=== PATIENT | male | born 1950 | race Two or more races ===

== ENCOUNTER 2020-05-20 19:31 | Emergency (ER) | payer OTHER ==
[~2020-05-20] VITALS: Ht 180.3 cm; Wt 64.4 kg
[2020-05-20] MEDS ORDERED: METFORMIN HCL500 M3 (19:45)
[2020-05-20] MEDS ORDERED: CARVEDILOL12.5 M1 (19:45)
[2020-05-20] MEDS ORDERED: LASIX20 MG (19:46)
[2020-05-20] MEDS ORDERED: ASPIR 8181 MG (19:46)
[2020-05-20] MEDS ORDERED: FINASTERIDE5 MG (19:46)
[2020-05-20] MEDS ORDERED: BACTRIM DS TAB1 EACH PO (23:26)
== END 2020-05-20 23:50 | disposition home or self-care (01) ==
LOC: ER 19:31
DX: L72.3 Sebaceous cyst (principal); E11.65 Type 2 diabetes mellitus with hyperglycemia; Z20.828 Contact with and (suspected) exposure to other viral communicable diseases

== ENCOUNTER 2022-06-26 20:14 | Emergency (ER) | payer OTHER ==
[~2022-06-26] VITALS: Ht 180.3 cm; Wt 67.1 kg
[~2022-06-26 20:14] MED LIST: ASPIR 8181 MG; BACTRIM DS TAB1 EACH PO; CARVEDILOL12.5 M1; FINASTERIDE5 MG; LASIX20 MG; METFORMIN HCL500 M3
[2022-06-26] MEDS ORDERED: METFORMIN HCL1000 M2 PO (23:59)
[2022-06-27] MEDS ORDERED: LASIX20 MG PO (00:03)
== END 2022-06-27 00:11 | disposition home or self-care (01) ==
LOC: ER 20:14
DX: E11.65 Type 2 diabetes mellitus with hyperglycemia (principal); Z79.4 Long term (current) use of insulin; I10 Essential (primary) hypertension; Z88.8 Allergy status to other drugs, medicaments and biological substances

== ENCOUNTER 2022-11-22 11:36 | Emergency (ER) | payer OTHER ==
[~2022-11-22] VITALS: Ht 180.3 cm; Wt 69.4 kg
[~2022-11-22 11:36] MED LIST changes: +LASIX20 MG PO; +METFORMIN HCL1000 M2 PO
== END 2022-11-22 17:37 | disposition home or self-care (01) ==
LOC: ER 11:36
DX: R60.0 Localized edema (principal); Z88.6 Allergy status to analgesic agent; I10 Essential (primary) hypertension; E11.9 Type 2 diabetes mellitus without complications; Z20.822 Contact with and (suspected) exposure to COVID-19; I51.7 Cardiomegaly

== ENCOUNTER 2023-04-12 19:48 | Emergency (ER) | payer OTHER ==
[~2023-04-12] VITALS: Ht 180.3 cm; Wt 65.8 kg
[2023-04-12] MEDS ORDERED: TORSEMIDE20 MG PO (20:47)
== END 2023-04-13 03:10 | disposition home or self-care (01) ==
LOC: ER 19:48
DX: R06.02 Shortness of breath (principal); R07.9 Chest pain, unspecified; E78.00 Pure hypercholesterolemia, unspecified; N28.9 Disorder of kidney and ureter, unspecified; I11.0 Hypertensive heart disease with heart failure; I50.9 Heart failure, unspecified; Z95.0 Presence of cardiac pacemaker; Z88.8 Allergy status to other drugs, medicaments and biological substances

== ENCOUNTER 2024-07-13 10:28 | Emergency (ER) | payer OTHER ==
[~2024-07-13] VITALS: Ht 180.3 cm; Wt 68.9 kg
[~2024-07-13 10:28] MED LIST changes: +TORSEMIDE20 MG PO
[2024-07-13] MEDS ORDERED: JARDIANCE10 MG (10:42)
[2024-07-13] MEDS ORDERED: PEPCID AC20 MG PO (10:59)
[2024-07-13] MEDS ORDERED: CEPHALEXIN750 MG PO (10:59)
[2024-07-13] MEDS ORDERED: CEFTRIAXONE SODIUM 1,000 MG VIAL IM ONE (11:00)
[2024-07-13] MEDS ORDERED: KETOROLAC TROMETHAMINE 30 MG VIAL IM ONE (11:00)
== END 2024-07-13 11:14 | disposition home or self-care (01) ==
LOC: ER 10:29
DX: T30.0 Burn of unspecified body region, unspecified degree (principal); E11.9 Type 2 diabetes mellitus without complications; Z79.84 Long term (current) use of oral hypoglycemic drugs; Z88.7 Allergy status to serum and vaccine
CPT/HCPCS: 96372; 99282; J0696; J1885

== ENCOUNTER 2025-07-03 18:12 | Emergency (ER) | payer OTHER ==
[~2025-07-03] VITALS: Ht 180.3 cm; Wt 69.4 kg
[~2025-07-03 18:12] MED LIST changes: +CEPHALEXIN750 MG PO; +JARDIANCE10 MG; +PEPCID AC20 MG PO
[2025-07-03 20:37] LABS: BASO % 0.5 % (0.1-1.2); EOS # 0.09 (0.04-0.54); EOS % 1.2 % (0.7-7.0); LYMPH # 1.12 (1.18-3.74); LYMPH % 14.7 % (19.3-53.1); MEAN PLATELET VOLUME 10.80 fl (9.4-12.4); MONO # 0.71 (0.24-0.82); MONO % 9.3 % (4.7-12.5); NEUT # 5.62 (1.56-6.13); NEUT % 74.0 % (34.0-71.1); RED CELL DISTRIBUTION WIDTH 15.2 % (11.6-14.4)
[2025-07-03 20:56] LABS: INR 1.17
[2025-07-03 21:03] LABS: ALT/SGPT 20.0 U/L (12-78); AST/SGOT 16.0 U/L (15-37); BILIRUBIN TOTAL 1.28 mg/dL (0.3-1.2); BUN CREA RATIO 16.0 (7.0-25.0); CREATININE SERUM 1.17 mg/dL (0.70-1.30); GFR 61.11; GLOBULINA 3.1 G/DL (2.4-3.5); GLUCOSE FASTING 145.0 mg/dL (65-100); OSMOLALITY SERUM 282.0 MOSM/KG (275-295)
[2025-07-03 21:26] LABS: COVID-19 AG NEGATIVE (NEGATIVE)
[2025-07-03] MEDS ORDERED: 0.9 % SODIUM CHLORIDE 250 ML IV ONE (22:15)
[2025-07-03] MEDS ORDERED: ENOXAPARIN SODIUM 60 MG/0.6 ML SYRINGE SUBCUTANEO ONE ×2 (22:45→23:24)
[2025-07-03 23:59] LABS: URINE APPEARANCE Clear; URINE BILIRRUBIN Negative (NEGATIVE); URINE BLOOD Negative; URINE COLOR Yellow; URINE KETONE Negative (NEGATIVE); URINE LEUKOCYTE Negative; URINE NITRATE Negative; URINE PROTEIN 30 (NEGATIVE); URINE UROBILINOGEN 1.0 E.U./dl
[2025-07-04 00:04] LABS: URINE BACTERIA 4.7 uL (0.0-1933); URINE WBC 2.2 uL (0.0-23.2)
[2025-07-04 00:07] LABS: URINE CAST 0.00 uL (0.0-1.40); URINE EPITHELIAL CELLS 1.0 uL (0.0-38.8); URINE GLUCOSE >=1000 MG/DL (NEGATIVE); URINE RBC 1.6 uL (0.0-20.8)
[2025-07-04] MEDS ORDERED: NITROGLYCERIN 250 ML IV SCH (00:30)
[2025-07-04] MEDS ORDERED: 0.9 % SODIUM CHLORIDE 500 ML IV ONE (00:30)
[2025-07-04] MEDS ORDERED: NITROGLYCERIN IN 5 % DEXTROSE 50 MG/250 ML BOTTLE IV ONE (00:39)
[2025-07-04 01:10] VITALS: BP 102/76; O2SAT 99
[2025-07-04] MEDS ORDERED: TOPROL XL50 M1 PO (06:27)
[2025-07-04] MEDS ORDERED: LASIX40 MG PO (06:27)
== END 2025-07-04 07:56 ==
LOC: ER 18:12
DX: I50.9 Heart failure, unspecified (principal); I51.7 Cardiomegaly; J90 Pleural effusion, not elsewhere classified; K57.30 Diverticulosis of large intestine without perforation or abscess without bleeding; N40.0 Benign prostatic hyperplasia without lower urinary tract symptoms; K40.90 Unilateral inguinal hernia, without obstruction or gangrene, not specified as recurrent; E11.9 Type 2 diabetes mellitus without complications; Z79.84 Long term (current) use of oral hypoglycemic drugs; Z88.8 Allergy status to other drugs, medicaments and biological substances; Z20.822 Contact with and (suspected) exposure to COVID-19; Z95.0 Presence of cardiac pacemaker
CPT/HCPCS: 36415; 71046; 71260; 74177; 82803; 93005; 93041; 96365; 96366; 99284; J3490; J7030; Q9965